=== PATIENT | male | born 1960 | race Caucasian/White ===

== ENCOUNTER 2017-04-13 06:08 | Observation (INO) | payer SELFPAY ==
[~2017-04-13] VITALS: Ht 188 cm; Wt 92.0 kg
[2017-04-13 07:02] LABS: BASOPHILS # (AUTO) 0.03 x10^3/uL (0-0.1); BASOPHILS % (AUTO) 0 % (0-1); EOSINOPHILS # (AUTO) 0.22 x10^3/uL (0-0.4); EOSINOPHILS % (AUTO) 2 % (1-7); LYMPHOCYTES # (AUTO) 1.71 x10^3/uL (1-3.4); LYMPHOCYTES % (AUTO) 17 % (22-44); MD NO; MEAN CORPUSCULAR HEMOGLOBIN 29.7 pg (27.5-34.5); MEAN CORPUSCULAR HGB CONC 34.1 g/dL (33.2-36.2); MEAN CORPUSCULAR VOLUME 87.2 fL (81-97); MEAN PLATELET VOLUME 7.3 fL (7.4-10.4); MONOCYTES % (AUTO) 3 % (2-9); NEUTROPHILS # (AUTO) 8.03 x10^3/uL (1.8-6.8); NEUTROPHILS % (AUTO) 78 % (42-75); PLATELET COUNT 267 x10^3/uL (130-400); RED BLOOD COUNT 4.71 x10^6/uL (4.38-5.82); RED CELL DISTRIBUTION WIDTH 13.5 % (9.4-14.8)
[2017-04-13 07:13] LABS: ALANINE AMINOTRANSFERASE 36 U/L (12-78); ALBUMIN 3.9 g/dL (3.4-5.0); ANION GAP 8 mmol/L (5-15); CALCIUM 8.6 mg/dL (8.5-10.1); CHLORIDE 111 mmol/L (98-107); CREATININE 1.19 mg/dL (0.7-1.3)
[2017-04-13 07:15] LABS: SALICYLATE LEVEL < 1.7 mg/dL (2.8-20.0)
[2017-04-13 07:17] LABS: ACETAMINOPHEN < 2 mcg/mL (10-30); ALKALINE PHOSPHATASE 81 U/L (45-117); BILIRUBIN,TOTAL 0.5 mg/dL (0.2-1.0); TOTAL PROTEIN 7.4 g/dL (6.4-8.2)
[2017-04-13 11:45] LABS: CULTURE INDICATED? NO; MICROSCOPIC NOT IND
[2017-04-13 11:56] LABS: AMPHETAMINE SCREEN, URINE Negative (Negative); BARBITURATE SCREEN, URINE Negative (Negative); BENZODIAZEPINE SCREEN, URINE Negative (Negative); CANNABINOID SCREEN, URINE Positive (Negative); COCAINE SCREEN, URINE Negative (Negative); METHADONE SCREEN, URINE Negative (Negative); OPIATE SCREEN, URINE Negative (Negative)
[2017-04-13] MEDS ORDERED: MECLIZINE CHEWABLE 25 MG TAB ONE (12:53)
[2017-04-13] MEDS ORDERED: ONDANSETRON 2MG/ML, 2ML ONE (12:54)
[2017-04-13] MEDS ORDERED: ONDANSETRON 2MG/ML, 2ML IVPush ONE (13:00)
[2017-04-13] MEDS ORDERED: MECLIZINE CHEWABLE 25 MG TAB PO ONE (13:00)
[2017-04-13] MEDS ORDERED: MECLIZINE 12.5 MG TABLET PO PRN (15:00)
[2017-04-13] MEDS ORDERED: ACETAMINOPHEN 325 MG TABLET PO PRN (15:00)
[2017-04-13] MEDS ORDERED: ONDANSETRON 2MG/ML, 2ML IVPush PRN (15:30)
[2017-04-13 19:50] VITALS: BP 113/71
[2017-04-13 19:52] VITALS: BP_SYST 102; BP_SYST 132; BP_DIAS 73; BP_DIAS 86
[2017-04-14 02:00] VITALS: BP 101/62
[2017-04-14 09:39] VITALS: BP 113/72
[2017-04-14] MEDS ORDERED: MECL12.52 PO (11:39)
[2017-04-14] MEDS ORDERED: ONDA4TAB7 PO (11:39)
[2017-04-14 14:35] VITALS: BP 112/75
== END 2017-04-14 15:23 | disposition home or self-care (01) ==
LOC: ED 14:00 → INTOOBSV 14:01 → EDIP 14:01 → ED 14:16 → 3NE 15:00
PROVIDERS: ADMIT Internal Medicine; ATTEND Internal Medicine
DX: R42 Dizziness and giddiness (principal); R53.1 Weakness; F12.90 Cannabis use, unspecified, uncomplicated
CPT/HCPCS: 36415; 70450; 80053; 80307; 80329; 81003; 83690; 85025; 93005; 96374; 96376; 99285; G0378; J2405; G0480